=== PATIENT | female | born 1945 | race Caucasian/White ===

== ENCOUNTER 2017-12-25 09:46 | Day surgery (SDC) | payer MEDICARE, BC ==
[~2017-12-25] VITALS: Ht 172.7 cm; Wt 62.1 kg
[2017-12-25 10:07] VITALS: BP 132/85
[2017-12-25] MEDS ORDERED: CLON1TAB PO (10:12)
[2017-12-25] MEDS ORDERED: ASCO500C2 PO (10:12)
[2017-12-25] MEDS ORDERED: CHOL100011 PO (10:16)
[2017-12-25] MEDS ORDERED: MAGN400T36 PO (10:16)
[2017-12-25] MEDS ORDERED: HYDR10TA11 PO (10:16)
[2017-12-25] MEDS ORDERED: SELENIUM PO (10:16)
[2017-12-25] MEDS ORDERED: UBID100C41 PO (10:16)
[2017-12-25] MEDS ORDERED: VITA1CAP PO (10:16)
[2017-12-25] MEDS ORDERED: MEPERIDINE/PF 50 MG/ML ONE ×2 (10:24→10:45)
[2017-12-25] MEDS ORDERED: MIDAZOLAM 1 MG/ML, 5ML ONE (10:25)
== END 2017-12-25 12:45 ==
LOC: OUT 09:46
PROVIDERS: ATTEND Internal Medicine
DX: Z12.11 Encounter for screening for malignant neoplasm of colon (principal); D12.5 Benign neoplasm of sigmoid colon; D12.2 Benign neoplasm of ascending colon; K57.30 Diverticulosis of large intestine without perforation or abscess without bleeding; F41.9 Anxiety disorder, unspecified; Z86.010 Personal history of colon polyps; Z98.890 Other specified postprocedural states; Z88.5 Allergy status to narcotic agent
CPT/HCPCS: 45385; 88305; 99152; 99153; J2250